=== PATIENT | female | born 1975 | race Caucasian/White ===

== ENCOUNTER 2018-01-12 05:32 | Day surgery (SDC) | payer OTHER ==
[~2018-01-12] VITALS: Ht 167.6 cm; Wt 57.7 kg
--- NOTE | ~2018-01-12 | HP ---
PATIENT: KENDRA REAL MEDICAL RECORD: [id number] ACCOUNT: [id number] LOCATION:[facility] : 71 ADMISSION DATE: 01/12/18 HISTORY AND PHYSICAL EXAMINATION CHIEF COMPLAINT: Pain. HISTORY OF PRESENT ILLNESS: The patient presented to the Emergency Room with less than 12 hours of abdominal pain. It was initially periumbilical and then moved to the right lower quadrant. She does have localized peritonitis. She was also noted on her CT scan to have a 3.4 cm left ovarian cyst. A CT scan was read out as an appendix that was prominent in size with enhancing barrera and a trace amount of adjacent fluid suggesting appendicitis and also left ovarian cyst. The risks, possible complications and alternatives to laparoscopic appendectomy, possible open procedure were explained to the patient. She elects to proceed. PAST MEDICAL AND SURGICAL HISTORY: None. REVIEW OF SYSTEMS: Negative for coronary artery disease or hypertension. Negative for CVA or seizures. Negative for diabetes or thyroid problems. SOCIAL HISTORY: Nonsmoker. ALLERGIES: No known drug allergies. HOME MEDICINES: Vitamin D. PHYSICAL EXAMINATION: GENERAL: The patient does not appear acutely ill. She does not appear chronically ill. VITAL SIGNS: Reviewed. HEAD: External ears appear normal. EYES: Extraocular movements are intact. NECK: Trachea midline. CHEST: No intercostal retractions. PULMONARY: Nonlabored, no stridor. ABDOMEN: As described above. BACK: No thoracic kyphosis. LYMPHATICS: No lymphangitic streaking of the exposed extremities. IMPRESSION: 1. Acute appendicitis. 2. Large ovarian cyst. PLAN: Laparoscopic appendectomy with possible open procedure and possible ovarian cystotomy. TRANSINT:[id number] Voice Confirmation ID: [id number] DOCUMENT ID: [id number] HISTORY AND PHYSICAL [id number] FARHANKENDRANAYA BRIAN, HUGH GILL at 1158 CC: [id number] DICTATION DATE: 01/12/18 1432 DIRECTOR TELEHEALTH: 01/12/18 1525 [facility] 01/12/[address] [id number]
--- NOTE | ~2018-01-12 | OP ---
PATIENT NAME: KENDRA REAL MEDICAL RECORD: [id number] :71 LOCATION:D.OPS ADMISSION DATE: SURGEON: HUGH BRIAN MD DATE OF OPERATION: 01/12/2018 PREOPERATIVE DIAGNOSES: 1. Acute appendicitis. 2. Large left ovarian cyst. POSTOPERATIVE DIAGNOSES: 1. Acute appendicitis. 2. Large left ovarian cyst. PROCEDURE: 1. Laparoscopic appendectomy. 2. Laparoscopic ovarian cystotomy. MARINE WELDER: None. BLOOD LOSS: Minimal. ANESTHESIA: General. COMPLICATIONS: None. The risks, possible complications, and alternatives to the procedure were explained to the patient. She elected to proceed. DESCRIPTION OF PROCEDURE: The patient was conveyed to the operating room urgently on 01/12/2018. General anesthesia was induced by the anesthesia staff. The abdomen was sterilely prepped and draped. A small skin teodora was accomplished in the left upper quadrant. Veress needle was inserted through the skin teodora into the peritoneal cavity. CO2 insufflation was begun. Once a sufficient pneumoperitoneum had been achieved, a 12-mm trocar was inserted through an incision at the umbilicus. Two 5-mm trocars were inserted, one in the right groin and one in the left groin. During insertion of the trocars, there was no apparent injury to the bowels, any intraperitoneal or retroperitoneal structures. With blunt grasper, I elevated the uterus. The right tube and ovary appeared normal. The left ovary was enlarged with an ovarian cyst. I cauterized the cyst with the Harmonic scalpel. Hemostasis was achieved with the Harmonic scalpel. Clear fluid came out through the cyst. I then incised the right white line of Toldt. The appendix was retrocecal. I was able to dissect the appendix out. I cauterized the mesoappendix with the Harmonic scalpel. I then stapled across the tip of the cecum with an Endo-HARISH type staple utilizing a blue load. The appendix was placed within a bag retrieval device. It was withdrawn out through the umbilical fascial defect. The 12-mm trocar was replaced and the abdomen reinsufflated. I irrigated and aspirated the right lower quadrant. There was no bleeding even under low pressure of 8. The 12-mm trocar was removed. The fascia at the umbilicus was closed with a single 0 Vicryl suture utilizing the Bulmaro-Jenna suture closure device. OPERATIVE REPORT [id number] KENDRA REAL The skin at the umbilicus was closed with interrupted 4-0 Vicryl Rapide sutures. The other skin incisions were closed with interrupted intracuticular 3-0 Vicryls. Benzoin and Steri-Strips were applied. The patient was then extubated and conveyed to post-anesthesia care unit where she was in stable condition. TRANSINT:[id number] Voice Confirmation ID: [id number] DOCUMENT ID: [id number] HUGH BRIAN MD at 1158 CC: SERENA ALEXANDRE MD [id number] DICTATION DATE: 01/12/18 1442 MOLD YARN SUPERVISOR: 01/12/18 1659 [facility] 01/12/18 [id number] [place] [address]
[2018-01-12 02:45] LABS: APPEARANCE CLEAR (CLEAR); BILIRUBIN NEGATIVE (NEGATIVE); COLOR YELLOW (YELLOW); GLUCOSE NEGATIVE (NEGATIVE); KETONE NEGATIVE (NEGATIVE); NITRITE NEGATIVE (NEGATIVE); PROTEIN NEGATIVE (NEGATIVE); SPECIFIC GRAVITY 1.015 (1.005-1.020); UROBILINOGEN NORMAL (NORMAL)
[2018-01-12 02:51] LABS: BASOPHILS 0.4 % (0-2); EOSINOPHILS 1.5 % (0-7); HEMATOCRIT 38.7 % (36.0-48.0); HEMOGLOBIN 13.2 g/dL (12-16); IMMATURE GRANULOCYTES 0.2 % (0-5); LYMPHOCYTES 15.5 % (15-50); MCH 32.2 pg (26.0-34.0); MCHC 34.1 g/dL (31.0-37.0); MCV 94.4 fL (80.0-100.0); MEAN PLATELET VOLUME 9.9 fL (7.4-10.4); MONOCYTES 4.9 % (2-11); NEUTROPHILS 77.5 % (40-80); PLATELET COUNT 212 10x3/uL (130-400)
[2018-01-12 02:53] LABS: HCG URINE NEGATIVE (NEGATIVE)
[2018-01-12 03:00] LABS: AMYLASE - SERUM 45 U/L (25-115); LIPASE 147 U/L (73-393)
[2018-01-12 03:27] LABS: ALBUMIN 3.7 g/dL (3.4-5.0); ANION GAP 13.5 mmol/L (8-16); BILIRUBIN - TOTAL 0.34 mg/dL (0.2-1.3); CALCIUM 9.1 mg/dL (8.5-10.1); CREATININE - SERUM 0.9 mg/dL (0.6-1.3); POTASSIUM - SERUM 3.5 mmol/L (3.5-5.1); PROTEIN - SERUM 7.2 g/dL (6.4-8.2)
[2018-01-12 06:22] VITALS: BP 102/67
[2018-01-12 06:23] VITALS: BP 102/67; Ht 167.6 cm; Wt 57.7 kg
[2018-01-12 07:30] VITALS: BP 106/58
[2018-01-12 15:07] VITALS: BP 102/51
[2018-01-12 15:18] VITALS: BP 92/45
[2018-01-12 15:30] VITALS: BP 104/67
[2018-01-12] MEDS ORDERED: HYDROCODON-ACE1 EAC7 PO (17:09)
== END 2018-01-12 17:47 | disposition home or self-care (01) ==
LOC: OBSVTIME → D.OPS 05:32 → D.EDHOLD 05:32 → D.ER 05:32 → OBSVTIME 05:32 → D.LD 05:32 → D.EDHOLD 05:44 → D.LD 06:13 → EDSTATUS 14:30 → D.OPS 17:47 → D.LD 17:47
PROVIDERS: Family Medicine
DX: K35.80 Unspecified acute appendicitis (principal); N83.202 Unspecified ovarian cyst, left side; Z01.812 Encounter for preprocedural laboratory examination

== ENCOUNTER 2018-06-12 22:30 | Outpatient (CLI) | payer OTHER ==
[2018-01-12 06:23] VITALS: BMI 20.5
[~2018-06-12 22:30] MED LIST: HYDROCODON-ACE1 EAC7 PO
== END 2018-06-12 23:59 | disposition home or self-care (01) ==
LOC: D.MAMMO 22:30
DX: Z12.31 Encounter for screening mammogram for malignant neoplasm of breast (principal)